=== PATIENT | female | born 1975 | race Caucasian/White ===

== ENCOUNTER 2016-10-25 09:57 | Emergency (ER) | payer MEDICAID ==
[~2016-10-25] VITALS: Ht 154.9 cm; Wt 80.1 kg
[~2016-10-25 09:57] MED LIST: ACET325T14 PO; ASPI1TAB30 PO; TRAM50TA2; TRAM50TA2 PO; [UNRECOGNIZED DRUG - CODE]
[2016-10-25 10:03] VITALS: BP 130/86
== END 2016-10-25 11:00 | disposition home or self-care (01) ==
LOC: ED 10:33
DX: K08.89 Other specified disorders of teeth and supporting structures (principal)
CPT/HCPCS: 99283

== ENCOUNTER 2016-10-26 09:57 | Emergency (ER) | payer MEDICAID ==
[~2016-10-26] VITALS: Ht 154.9 cm; Wt 80.2 kg
[2016-10-26 10:14] VITALS: BP 126/85
== END 2016-10-26 11:00 | disposition home or self-care (01) ==
LOC: ED 10:40
DX: K08.89 Other specified disorders of teeth and supporting structures (principal); Z87.440 Personal history of urinary (tract) infections; Z88.6 Allergy status to analgesic agent
CPT/HCPCS: 99283

== ENCOUNTER 2016-12-28 22:07 | Emergency (ER) | payer MEDICAID | END 2016-12-28 23:25 | LOC: ED 22:07 | DX: K08.89 Other specified disorders of teeth and supporting structures (principal); Z88.6 Allergy status to analgesic agent | CPT/HCPCS: 99283 ==

== ENCOUNTER 2017-01-07 09:18 | Emergency (ER) | payer MEDICAID ==
[~2017-01-07] VITALS: Ht 154.9 cm; Wt 81.8 kg
[2017-01-07 09:22] VITALS: BP 128/84
== END 2017-01-07 09:52 | disposition home or self-care (01) ==
LOC: ED 09:34
DX: K08.89 Other specified disorders of teeth and supporting structures (principal); Z90.49 Acquired absence of other specified parts of digestive tract; Z90.710 Acquired absence of both cervix and uterus
CPT/HCPCS: 99283

== ENCOUNTER 2017-01-12 00:55 | Emergency (ER) | payer MEDICAID | END 2017-01-12 10:12 | disposition home or self-care (01) | LOC: ED 03:30 | DX: S39.012A Strain of muscle, fascia and tendon of lower back, initial encounter (principal); G89.29 Other chronic pain; X50.0XXA Overexertion from strenuous movement or load, initial encounter; Y93.89 Activity, other specified; Y92.89 Other specified places as the place of occurrence of the external cause; Y99.8 Other external cause status | CPT/HCPCS: 72110; 99284 ==

== ENCOUNTER 2017-01-15 04:16 | Emergency (ER) | payer MEDICAID ==
[~2017-01-15] VITALS: Ht 154.9 cm; Wt 81.5 kg
[2017-01-15] MEDS ORDERED: LIDOCAINE 1%, 20ML ONE (04:48)
[2017-01-15] MEDS ORDERED: TRAM50TA2 PO (04:51)
[2017-01-15] MEDS ORDERED: LIDOCAINE 1%-EPI 1:100K, 20ML SQ ONE (05:00)
[2017-01-15] MEDS ORDERED: BACITRACIN ZINC OINT 500U/GM, 0.9 GM ONE (06:13)
[2017-01-15 06:17] VITALS: BP 139/74
== END 2017-01-15 06:19 | disposition home or self-care (01) ==
LOC: ED 05:16
DX: S60.512A Abrasion of left hand, initial encounter (principal); R51 Headache; G89.29 Other chronic pain; W25.XXXA Contact with sharp glass, initial encounter; Y93.89 Activity, other specified; Y99.8 Other external cause status; Y92.009 Unspecified place in unspecified non-institutional (private) residence as the place of occurrence of the external cause
CPT/HCPCS: 99284

== ENCOUNTER 2017-02-21 06:25 | Emergency (ER) | payer MEDICAID ==
[~2017-02-21] VITALS: Ht 154.9 cm; Wt 79.7 kg
[2017-02-21 08:10] VITALS: BP 137/84
== END 2017-02-21 08:12 | disposition home or self-care (01) ==
LOC: ED 07:19
DX: K08.89 Other specified disorders of teeth and supporting structures (principal)
CPT/HCPCS: 99283

== ENCOUNTER 2017-03-04 04:23 | Emergency (ER) | payer MEDICAID ==
[2017-03-04 04:48] VITALS: BP 125/85
[2017-03-04] MEDS ORDERED: OXYC-302 PO (05:23)
== END 2017-03-04 07:23 | disposition home or self-care (01) ==
LOC: ED 05:14
DX: S60.011A Contusion of right thumb without damage to nail, initial encounter (principal); S40.012A Contusion of left shoulder, initial encounter; S50.02XA Contusion of left elbow, initial encounter; W19.XXXA Unspecified fall, initial encounter; Y93.89 Activity, other specified; Y92.009 Unspecified place in unspecified non-institutional (private) residence as the place of occurrence of the external cause; Y99.9 Unspecified external cause status
CPT/HCPCS: 99284

== ENCOUNTER 2017-03-21 23:19 | Emergency (ER) | payer MEDICAID ==
[~2017-03-21] VITALS: Ht 154.9 cm; Wt 78.8 kg
[~2017-03-21 23:19] MED LIST changes: +OXYC-302 PO
[2017-03-21 23:24] VITALS: BP 124/87
== END 2017-03-21 23:49 | disposition home or self-care (01) ==
LOC: ED 23:39
DX: K08.89 Other specified disorders of teeth and supporting structures (principal); Z90.49 Acquired absence of other specified parts of digestive tract; Z90.710 Acquired absence of both cervix and uterus
CPT/HCPCS: 99283